=== PATIENT | male | born 1975 | race Caucasian/White ===

== ENCOUNTER 2017-12-25 07:43 | Emergency (ER) | payer MEDICAID ==
[~2017-12-25] VITALS: Ht 182.9 cm; Wt 109.0 kg
[2017-12-25 07:48] VITALS: BP 123/57; PULSE 69; RESP 20; TEMP 98.2; O2SAT 99
--- NOTE | 2017-12-25 08:29 | PD ---
HPI Chief Complaint: Skin Problem Time Seen by Provider: 08:18 Travel History International Travel<30 days: No Contact w/Intl Traveler<30days: No Traveled to known affect area: No History of Present Illness HPI 42-year-old male presents to the emergency department with complaint of redness to the back of his neck that is now extending around to the front of his neck 2 days after being either bit or stung by an insect. He said he swatted something off the back of his neck. Denies fever, vomiting. Denies chest pain , shortness of breath, airway edema, tongue edema, difficulty breathing, wheezing. Says the rash is itchy, burning and painful. Has used oral Benadryl and topical alcohol to clean the area for symptom management. Is not up-to- date on tetanus vaccination. Symptoms are moderate in severity. No known aggravating or relieving factors. No primary care provider. No known allergies. Denies significant past medical history. Has no other medical complaints. No other modifying factors or associated signs and symptoms. [facility] Social History Tobacco Use: No Allergies-Medications (Allergen,Severity, Reaction): Coded Allergies: No Known Allergies (Unverified , 12/25/17) Reported Meds & Prescriptions Reported Meds & Active Scripts Active Ibuprofen 800 Mg Tab 800 Mg PO Q6HR PRN Deltasone (Prednisone) 20 Mg Tab 40 Mg PO DAILY 4 Days start 12/26/2017 Bactrim DS (Sulfamethoxazole-Trimethoprim) 800-160 Mg Tab 1 Tab PO BID 10 Days Review of Systems Except as stated in HPI: all other systems reviewed are Neg Physical Exam Narrative GENERAL: Well-nourished, well-developed male patient, in no acute distress; afebrile, nontoxic-appearing SKIN: Warm and dry. Raised, erythemic maculopapular rash with some vesicles noted, to the posterior neck and the rash extends around to the front of the neck. The rash is not as prominent to the front of the neck as to the posterior. No lymphadenopathy. No palpable abscess or fluctuance. HEAD: Atraumatic. Normocephalic. EYES: Pupils equal and round. No scleral icterus. No injection or drainage. ENT: Mucosa pink and moist. No erythema or exudates. No uvular edema. No uvular , palatal, or tonsillar deviation. Airway patent. NECK: Trachea midline. CARDIOVASCULAR: Regular rate and rhythm. No murmur appreciated. RESPIRATORY: No accessory muscle use. Breath sounds are clear and equal bilaterally. No retractions or tachypnea. GASTROINTESTINAL: Flat. MUSCULOSKELETAL: No obvious deformities. No clubbing. No cyanosis. No edema. NEUROLOGICAL: Awake and alert. Oriented 3. No obvious cranial nerve deficits. Motor grossly within normal limits. Normal speech. PSYCHIATRIC: Appropriate mood and affect; insight and judgment normal. Data Data Last Documented VS Vital Signs Date Time Temp Pulse Resp B/P (MAP) Pulse Ox O2 Delivery O2 Flow Rate FiO2 12/25/17 07:48 98.2 69 20 123/57 (79) 99 Orders Orders Prednisone (Deltasone) (12/25/17 08:30) Diphenhydramine (Benadryl) (12/25/17 08:30) Sulfamet-Trimeth Ds 800-160 Mg (Bactrim (12/25/17 08:45) Tetanus/Diphtheria Tox Adult (Tetanus/Di (12/25/17 08:45) Ibuprofen (Motrin) (12/25/17 08:45) Ed Discharge Order (12/25/17 08:36) MDM Medical Decision Making Medical Screen Exam Complete: Yes Emergency Medical Condition: Yes Medical Record Reviewed: Yes Differential Diagnosis Insect bite, cellulitis, allergic reaction Narrative Course 42-year-old male with an infected bug bite to the back of his neck and cellulitis extending to the front of his neck. He is in no acute distress and without retractions or tachypnea. Lungs are clear and equal throughout. Denies fever, vomiting. Patient is afebrile and nontoxic-appearing. Rash is itchy, painful, burning. Denies airway edema, tongue edema. Area was marked with a surgical marker. Tetanus updated in the ER. Ibuprofen, Deltasone, Bactrim, Benadryl administered in the ER. Ibuprofen, Deltasone, Bactrim prescribed for home. Instructed patient to follow up with primary care provider. Patient verbalizes understanding and agreement with treatment plan. Patient is medically cleared and stable for discharge. Discussed reasons to return to the emergency department. Patient agrees with treatment plan. The patients vital signs are stable and the patient is stable for outpatient follow- up and treatment. Patient discharged home, stable and in no acute distress. Diagnosis Primary Impression: Bug bite with infection Qualified Codes: W57.XXXA - Bitten or stung by nonvenomous insect and other nonvenomous arthropods, initial encounter Referrals: [facility] Primary Care Physician Patient Instructions: Cellulitis (ED), General Instructions, Insect Bite or Sting (ED) Additional Instructions: Antibiotics as prescribed Take oral steroids as prescribed [id number] topicals to reduce itch, such as hydrocortisone cream Benadryl as directed and as needed to reduce itch/rash Follow-up with your primary care provider Return to the emergency department immediately with worsening of symptoms Med/Other Pt SpecificInfo: Prescription(s) given Scripts Ibuprofen (Ibuprofen) 800 Mg Tab 800 MG PO Q6HR Y for PAIN, #40 TAB 0 Refills Prov: Christal Betts 12/25/17 Prednisone (Deltasone) 20 Mg Tab 40 MG PO DAILY for 4 Days, #8 TAB 0 Refills start 12/26/2017 Prov: Christal Betts 12/25/17 Sulfamethoxazole-Trimethoprim (Bactrim DS) 800-160 Mg Tab 1 TAB PO BID for Infection for 10 Days, #20 TAB 0 Refills Prov: Christal Betts 12/25/17 Disposition: 01 DISCHARGE HOME Condition: Stable Christal Betts Dec 25, 2017 08:29
[2017-12-25] MEDS ORDERED: diphenhydrAMINE HCL 50 MG CAP PO ONE (08:30)
[2017-12-25] MEDS ORDERED: predniSONE 20 MG TAB PO ONE (08:30)
[2017-12-25] MEDS ORDERED: PRED-503 PO (08:34)
[2017-12-25] MEDS ORDERED: BACT800T5 PO (08:34)
[2017-12-25] MEDS ORDERED: IBUP1TAB7 PO (08:34)
[2017-12-25] MEDS ORDERED: SULFAMETHOXAZOLE-TRIMETHOPRIM DS 800-160 MG TAB PO ONE (08:45)
[2017-12-25] MEDS ORDERED: IBUPROFEN 800 MG TAB PO ONE (08:45)
[2017-12-25] MEDS ORDERED: TETANUS/DIPHTHERIA TOXOID ADULT 0.5 ML VIAL IM ONE (08:45)
== END 2017-12-25 09:10 | disposition home or self-care (01) ==
LOC: NEPD 07:43
DX: L03.221 Cellulitis of neck (principal); S10.96XA Insect bite of unspecified part of neck, initial encounter; W57.XXXA Bitten or stung by nonvenomous insect and other nonvenomous arthropods, initial encounter; Z23 Encounter for immunization
CPT/HCPCS: 90471; 90714; 99283; J7512; Q0163